=== PATIENT | male | born 1960 | race Caucasian/White ===

== ENCOUNTER 2022-01-19 08:17 | Day surgery (SDC) | payer BC ==
[2022-01-19] MEDS ORDERED: Lactated Ringers 1,000 ML IV SCH (08:30)
--- NOTE | 2022-01-19 09:02 | HP ---
DATE OF SURGERY: 01/19/2022 HISTORY OF PRESENT ILLNESS: The patient is a 61-year-old last colonoscopy at age 51, ten years ago. He denies any bloody stools. No change in bowel movements. No pain. Family history negative for colon cancer. He is in need of follow up screening colonoscopy. PAST MEDICAL HISTORY: Gout, hyperlipidemia, hypertension in the past. He had a broken ankle in the past. Cyst on left cheek in the past. PAST SURGICAL HISTORY: Back surgery in the past. MEDICATIONS: Enalapril, simvastatin, calcium, vitamin C, vitamin D, aspirin. ALLERGIES: NKDA. FAMILY HISTORY: Heart disease, diabetes, hypertension, brain cancer. SOCIAL HISTORY: Chews one can per day. Denies smoking. Occasional alcohol use on the weekend denies abuse. REVIEW OF SYSTEMS: Fourteen systems reviewed. No chest pain or palpitations. Other systems negative or noncontributory as above and per preadmission questionnaire. PHYSICAL EXAMINATION: GENERAL: No acute distress. HEENT: Sclerae nonicteric. NECK: No JVD. CHEST: Equal excursion, nonlabored breathing. CVS: Regular rate and rhythm. ABDOMEN: Soft, nontender. EXTREMITIES: No significant edema. NEURO: Alert, oriented, moving extremities symmetrically. RECTAL: Deferred timed to endoscopy exam. PSYCH: Appropriate mood and affect. IMPRESSION: Need for follow up screening colonoscopy. I feel he is a candidate. He was shown the risk sheet and explained the procedure in detail but not limited to bleeding or infection, risk of bowel injury or perforation possibly requiring open procedure, risk of missed or nondiagnosis or incomplete exam possibly requiring barium enema, other studies or procedures, general risk of anesthesia or sedation, risk of bowel prep but not limited to, consent obtained. Will proceed with outpatient follow up screening colonoscopy.
[2022-01-19] MEDS ORDERED: Xylocaine-Mpf 2% 5 Ml Vial ONE (11:07)
[2022-01-19] MEDS ORDERED: DIPRIVAN 200 MG/20 ML IV ONE ×2 (11:07→11:20)
[2022-01-19 12:33] VITALS: O2SAT 98
[2022-01-19 12:41] VITALS: BP 131/97; PULSE 67
--- NOTE | 2022-01-19 14:49 | OP ---
SURGERY DATE/TIME: 01/19/2022 1109 PREOPERATIVE DIAGNOSIS: Screening colonoscopy, last colonoscopy ten years or more ago. POSTOPERATIVE DIAGNOSES: 1) ASA Class II. 2) Mild to moderate diverticulosis left colon. 3) Ascending colon polyp x2. 4) Fair bowel prep. 5) Tortuous colon. 6) Withdrawal time approximately eight minutes. PROCEDURES: 1) Colonoscopy to cecum. 2) Hot biopsy polypectomy ascending colon polyp x2. SURGEON: Dr. Ernst Griffiths. ANESTHESIA: MAC. ESTIMATED BLOOD LOSS: Minimal. INDICATIONS: As noted above. Risks and benefits explained in detail but not limited to and consent obtained. DESCRIPTION OF PROCEDURE AND FINDINGS: The patient is taken to the endoscopy room. MAC anesthesia induced. After official time out and no disagreement with planned procedure, digital rectal exam did not reveal any rectal masses. Video colonoscope inserted and passed up through the tortuous sigmoid, descending, transverse and ascending colon. We got to just before cecal valve. It took quite a bit of time and positioning on his back, two different staff members pushing on abdomen finally the scope was able to better visualize the entire the cecum. Appendiceal orifice and valve were photo documented. Prep overall was fair. There was liquidy semisolid stool just limiting the exam for small lesions. The scope is carefully withdrawn over the next eight minutes. There were two small polyps in the proximal ascending colon removed with hot biopsy forceps and brief bursts of cautery. Good hemostasis was noted. Otherwise, no signs of any large polyps, masses or obstructing lesion. He did have mild to moderate diverticulosis more concentrated in the left colon in particular. The scope is withdrawn. The patient tolerated the procedure well. There were no immediate complications.
== END 2022-01-19 12:45 | disposition home or self-care (01) ==
LOC: SDC 08:17
PROVIDERS: ATTEND Surgery
DX: Z12.11 Encounter for screening for malignant neoplasm of colon (principal); K57.30 Diverticulosis of large intestine without perforation or abscess without bleeding; D12.2 Benign neoplasm of ascending colon
CPT/HCPCS: J2704